=== PATIENT | male | born 1940 | race Caucasian/White ===

== ENCOUNTER → 2018-06-16 08:54 | Outpatient (CLI) | payer OTHER, SELFPAY ==
[2018-06-16 09:58] LABS: Alanine Aminotransferase 18 IU/L (21-72); Albumin 4.3 g/dL (3.5-5.0); Albumin Globulin Ratio 1.3 (1.0-2.8); Alkaline Phosphatase 88 U/L (38-126); Aspartate Aminotransferase 31 IU/L (17-59); BUN Creatinine Ratio 22.7 (6-22); Bilirubin Total 0.7 mg/dL (0.2-1.3); Blood Urea Nitrogen 25 mg/dL (9-20); Calcium 9.4 mg/dL (8.4-10.2); Carbon Dioxide 30 mmol/L (22-32); Chloride 102 mmol/L (98-107); Cholesterol 169 mg/dL (140-199); Estimated Glomerular Filt Rate > 60.0 mL/min (>60); Globulin 3.2 g/dL (1.7-4.1); Glucose 109 mg/dL (80-110); HDL Cholesterol 43 mg/dL (40-60); HEMOLYSIS < 15 (0-50); LDL Cholesterol Calculated 103 mg/dL (<100); Potassium 4.4 mmol/L (3.4-5.1); Sodium 142 mmol/L (137-145); Total Protein 7.5 g/dL (6.3-8.2); Triglycerides 116 mg/dL (35-150)
== END ==
PROVIDERS: Family Provider Student in an Organized Health Care Education/Training Program; PCP Student in an Organized Health Care Education/Training Program; Visit Provider Internal Medicine Cardiovascular Disease
DX: I10 Essential (primary) hypertension (principal)
CPT/HCPCS: 36415; 80053; 80061

== ENCOUNTER → 2018-07-03 09:21 | Outpatient (CLI) | payer OTHER, SELFPAY ==
--- NOTE | 2018-07-03 | DI.ECHO.S_ITS ---
[facility]---------+ [facility] +---------+ : : [address] [place] : : : : [id number] : : : : Phone: [phone]---------+ Echocardiogram Report + + :Name: JOHAN LYMAN Study Date: 07/03/2018 Height: 74 in : :[facility] Weight: 198 lb : : Gender: Male BSA: 2.2 m2 : :: 1940 Age: 78 yrs BP: 130/60 mmHg: :Reason For Study: Mitral Valve- Regurgitation : :Ordering Physician: Narda : :Bereketiwdon Performed By: Camila Sy : + + Interpretation Summary The left ventricle is normal in size. The ejection fraction is estimated to be 55-60%. There has been no significant change since the previous study. The right ventricle is grossly normal size. The right ventricular systolic function is normal. There is moderate mitral regurgitation. Compared to the prior echo study, there has been no change in the severity of mitral regurgitation. There is mild to moderate aortic regurgitation. Compared to the prior echo study, there has been no change in the severity of aortic regurgitation. There is moderate tricuspid regurgitation. Compared to the prior echo exam, there has been an increase in TR severity. The right ventricular systolic pressure is estimated to be at least 40 mmHg based on an estimated right atrial pressure of 3 mm Hg. Compared to the prior echo exam, there has been no change in the severity of pulmonary hypertension. Mild pulmonary artery dilation. The ascending aorta is mildly enlarged. Procedure: A two-dimensional transthoracic echocardiogram with color flow and Doppler was performed. The study quality was technically adequate. Comparison is made with the echocardiogram of 07-20-15. The patient was in atrial fibrillation with heart rates between 59-69 bpm during the exam. Left Ventricle: The left ventricle is normal in size. There is moderate proximal septal thickening noted. There is no echo evidence for significant left ventricular outflow tract obstruction. There is no thrombus. The ejection fraction is estimated to be 55-60%. There has been no significant change since the previous study. There are no focal wall motion abnormalities. Diastolic function could not be accurately assessed due to atrial fibrillation. Right Ventricle: The right ventricle is grossly normal size. The right ventricular systolic function is normal. Atria: The left atrium is severely dilated. The right atrium is mildly dilated. There has been no significant change since the previous study. Doppler evidence suggests a left to right interatrial shunt. Mitral Valve: There is mild mitral annular calcification. There is moderate mitral regurgitation. Compared to the prior echo study, there has been no change in the severity of mitral regurgitation. Aortic Valve: The aortic valve opens well. The aortic valve is trileaflet. There is no aortic valve stenosis. There is mild to moderate aortic regurgitation. Compared to the prior echo study, there has been no change in the severity of aortic regurgitation. Tricuspid Valve: The tricuspid valve is normal. There is moderate tricuspid regurgitation. The right ventricular systolic pressure is estimated to be at least 40 mmHg based on an estimated right atrial pressure of 3 mm Hg. Compared to the prior echo exam, there has been an increase in TR severity. Compared to the prior echo exam, there has been no change in the severity of pulmonary hypertension. Pulmonic Valve: The pulmonic valve is not well seen, but is grossly normal. There is trace pulmonic regurgitation. Great Vessels: The aortic root is normal size. The ascending aorta is mildly enlarged. There has been no significant change since the previous study. Mild pulmonary artery dilation. The IVC is of normal diameter and collapses greater than 50% with a sniff. This suggests a low right atrial pressure of 3 mm Hg. Pericardium/ Pleura There is no pericardial effusion. There is no pleural effusion. MMode/2D Measurements & Calculations LVIDd: 5.0 cm Ao root diam: 3.7 cm LVIDs: 2.8 cm Aortic Jxn: 3.5 cm FS: 43.0 % asc Aorta Diam: 3.7 cm EPSS: 0.00 cm Ao Arch Diam (Prox Trans): 3.0 cm IVSd: 1.5 cm LVPWd: 0.87 cm LV barrera. diameter/BSA (cm/m^2): 2.3 LV sys. diameter/BSA (cm/m^2): 1.3 LA dimension: 6.3 cm RA long axis: 7.2 cm LA A2 area: 52.9 cm2 RA area: 31.5 cm2 LA A4 area: 52.8 cm2 RA vol: 116.8 ml LA length (vol): 8.6 cm RA : 54.0 ml/m2 LA vol: 276.9 ml IVC diam: 2.0 cm LA vol index: 128.0 ml/m2 RVDd major: 5.5 cm RVD1 (basal): 4.2 cm RVD2 (mid): 3.6 cm Doppler Measurements & Calculations Ao V2 max: 98.0 cm/sec AI P1/2t: 820.3 msec Ao V2 mean: 59.4 cm/sec AI dec slope: 144.3 cm/sec2 Ao max P.8 mmHg Ao mean P.7 mmHg Ao V2 VTI: 17.4 cm MV P1/2t: 65.0 msec TR max tamiko: 304.5 cm/sec MR ERO: 0.30 cm2 TR max P.1 mmHg PA V2 max: 50.5 cm/sec PA V2 mean: 32.0 cm/sec PA mean P.49 mmHg PA Accel Time: 0.12 sec MV V2 mean: 51.8 cm/sec MV P1/2t max tamiko: 123.5 cm/sec MV mean P.6 mmHg MVA(P1/2t): 3.4 cm2 MV V2 VTI: 22.4 cm MR flow rate: 149.6 cm3/sec MR PISA radius: 0.78 cm Reading Physician:ANIBAL
== END ==
PROVIDERS: PCP Student in an Organized Health Care Education/Training Program; Visit Provider Internal Medicine Cardiovascular Disease
DX: I08.3 Combined rheumatic disorders of mitral, aortic and tricuspid valves (principal)
CPT/HCPCS: 93306

== ENCOUNTER → 2018-12-09 11:31 | Outpatient (CLI) | payer OTHER, SELFPAY ==
--- NOTE | 2018-12-09 11:33 | DI.US.S_ITS ---
PROCEDURE: US ABDOMEN LIMITED INDICATIONS: LEFT GROIN PAIN TECHNIQUE: Real-time focused scanning was performed of the abdomen, with image documentation. COMPARISON: None. FINDINGS: Reducible, fat and possibly bowel containing left inguinal hernia. IMPRESSION: Left inguinal hernia. Dictated by: Lefty LINDO Interpreted: Talia Lebron MD on 12/09/2018 at 15:44 Approved by: Talia Lebron M.D. on 12/09/2018 at 16:03
== END ==
PROVIDERS: PCP Student in an Organized Health Care Education/Training Program; Visit Provider Nurse Practitioner
DX: K40.90 Unilateral inguinal hernia, without obstruction or gangrene, not specified as recurrent (principal); R10.32 Left lower quadrant pain
CPT/HCPCS: 76705

== ENCOUNTER → 2019-01-12 08:02 | Outpatient (CLI) | payer OTHER, SELFPAY ==
[2019-01-12 08:29] LABS: Hematocrit 45.6 % (41-53); Hemoglobin 15.2 g/dL (13.5-17.5); Mean Corpuscular HGB Conc 33.4 % (30-36); Mean Corpuscular Hemoglobin 31.2 PG (26-34); Mean Corpuscular Volume 93.4 fL (80-100); Platelet Count 217 X10^3/uL (150-400); Red Blood Cell Count 4.89 X10^6/uL (4.5-5.9); Red Cell Distribution Width 13.6 % (11.6-14.8); White Blood Cell Count 7.4 X10^3/uL (4.5-11.0)
[2019-01-12 09:42] LABS: Vitamin D 25 Hydroxy (D3) 58.5 ng/mL (30.0-100.0)
[2019-01-12 10:54] LABS: Creatinine Urine Random 146.5 mg/dL
[2019-01-12 10:57] LABS: Microalbumi Creatinin Ratio Ur 64.1 ug/mg CR (<30); Microalbumin Urine Random 9.4 mg/dL (0-1.6)
== END ==
PROVIDERS: PCP Student in an Organized Health Care Education/Training Program; Visit Provider Nurse Practitioner
DX: E78.00 Pure hypercholesterolemia, unspecified (principal); I10 Essential (primary) hypertension; Z86.39 Personal history of other endocrine, nutritional and metabolic disease
CPT/HCPCS: 36415; 82043; 82306; 82570; 85027

== ENCOUNTER → 2019-02-04 10:03 | Outpatient (CLI) | payer OTHER, SELFPAY | PROVIDERS: PCP Nurse Practitioner; Visit Provider Nurse Practitioner | DX: M81.0 Age-related osteoporosis without current pathological fracture (principal); M85.851 Other specified disorders of bone density and structure, right thigh; E55.9 Vitamin D deficiency, unspecified | CPT/HCPCS: 77080 ==

== ENCOUNTER → 2019-05-20 07:17 | Outpatient (CLI) | payer OTHER, SELFPAY ==
[2019-05-20 07:57] LABS: Hematocrit 43.9 % (41-53); Hemoglobin 14.8 g/dL (13.5-17.5); Mean Corpuscular HGB Conc 33.7 % (30-36); Mean Corpuscular Hemoglobin 31.3 PG (26-34); Mean Corpuscular Volume 92.7 fL (80-100); Platelet Count 214 X10^3/uL (150-400); Red Blood Cell Count 4.73 X10^6/uL (4.5-5.9); Red Cell Distribution Width 13.4 % (11.6-14.8); White Blood Cell Count 6.6 X10^3/uL (4.5-11.0)
[2019-05-20 08:05] LABS: Alanine Aminotransferase 12 IU/L (<50); Albumin 4.5 g/dL (3.5-5.0); Albumin Globulin Ratio 1.6 (1.0-2.8); Alkaline Phosphatase 88 U/L (38-126); Aspartate Aminotransferase 33 IU/L (17-59); BUN Creatinine Ratio 23.6 (6-22); Bilirubin Total 1.1 mg/dL (0.2-1.3); Blood Urea Nitrogen 26 mg/dL (9-20); Calcium 9.3 mg/dL (8.4-10.2); Carbon Dioxide 30 mmol/L (22-32); Chloride 101 mmol/L (98-107); Estimated Glomerular Filt Rate > 60.0 mL/min (>60); Globulin 2.9 g/dL (1.7-4.1); Glucose 110 mg/dL (80-110); HEMOLYSIS < 15 (0-50); Potassium 4.8 mmol/L (3.4-5.1); Sodium 140 mmol/L (137-145); Total Protein 7.4 g/dL (6.3-8.2)
[2019-05-20 08:42] LABS: Neutrophils Absolute Manual 5148 /uL (3000-5900); RBC Morphology Normal Morphology; Total Cells Counted 100
== END ==
PROVIDERS: PCP Nurse Practitioner; Visit Provider Nurse Practitioner
DX: E78.00 Pure hypercholesterolemia, unspecified (principal); I10 Essential (primary) hypertension; I48.20 Chronic atrial fibrillation, unspecified; I73.9 Peripheral vascular disease, unspecified
CPT/HCPCS: 36415; 80053; 84443; 85025

== ENCOUNTER → 2019-08-25 12:12 | Outpatient (CLI) | payer MEDICARE, SELFPAY ==
[2019-08-25 15:04] LABS: Prostate Specific Antigen Scrn 6.39 ng/mL (0.1-4.0)
== END ==
PROVIDERS: PCP Nurse Practitioner; Referring Provider Nurse Practitioner; Visit Provider Nurse Practitioner
DX: Z12.5 Encounter for screening for malignant neoplasm of prostate (principal)
CPT/HCPCS: 36415; G0103

== ENCOUNTER → 2020-01-19 07:48 | Outpatient (CLI) | payer MEDICARE, SELFPAY ==
[2020-01-19 09:00] LABS: Prostate Specific Antigen 6.58 ng/mL (0.10-4.00)
== END ==
PROVIDERS: PCP Nurse Practitioner; Referring Provider Nurse Practitioner; Visit Provider Nurse Practitioner
DX: D48.9 Neoplasm of uncertain behavior, unspecified (principal); N40.1 Benign prostatic hyperplasia with lower urinary tract symptoms; R35.1 Nocturia
CPT/HCPCS: 36415; 84153

== ENCOUNTER → 2020-05-18 08:03 | Outpatient (CLI) | payer MEDICARE, SELFPAY ==
[2020-05-18 09:07] LABS: Alanine Aminotransferase 13 IU/L (<50); Albumin Globulin Ratio 1.3 (1.0-2.8); Alkaline Phosphatase 85 U/L (38-126); Aspartate Aminotransferase 30 IU/L (17-59); BUN Creatinine Ratio 22.6 (6-22); Bilirubin Total 1.1 mg/dL (0.2-1.3); Blood Urea Nitrogen 28 mg/dL (9-20); Calcium 9.1 mg/dL (8.4-10.2); Carbon Dioxide 33 mmol/L (22-32); Chloride 101 mmol/L (98-107); Cholesterol 164 mg/dL (140-199); Estimated Glomerular Filt Rate 56.2 mL/min (>60); Globulin 3.1 g/dL (1.7-4.1); Glucose 109 mg/dL (80-110); HDL Cholesterol 44 mg/dL (40-60); HEMOLYSIS < 15 (0-50); LDL Cholesterol Calculated 102 mg/dL (<100); Potassium 4.4 mmol/L (3.4-5.1); Sodium 138 mmol/L (137-145); Total Protein 7.1 g/dL (6.3-8.2); Triglycerides 92 mg/dL (35-150)
== END ==
PROVIDERS: PCP Nurse Practitioner; Referring Provider Internal Medicine Cardiovascular Disease; Visit Provider Internal Medicine Cardiovascular Disease
DX: I10 Essential (primary) hypertension (principal); I48.20 Chronic atrial fibrillation, unspecified
CPT/HCPCS: 36415; 80053; 80061

== ENCOUNTER → 2020-06-01 14:49 | Outpatient (CLI) | payer MEDICARE, SELFPAY ==
--- NOTE | 2020-06-01 | DI.ECHO.S_ITS ---
[facility]---------+ [facility] +---------+ : : [address] : : : : [id number] : : : : Phone: [phone]---------+ Echocardiogram Report + + :Name: JOHAN LYMAN Study Date: 06/01/2020 Height: 74 in : :[facility] Weight: 191 lb : : Gender: Male BSA: 2.1 m2 : :: 1940 Age: 80 yrs BP: 150/85 mmHg: :Reason For Study: MITRAL INSUFFICIENCY : :Ordering Physician: LEA, : :KAYLAH Performed By: Loev Gtz : :Referring: KAYLAH TATE : + + Interpretation Summary 1) Normal left ventricular size and systolic function (EF 55-60%). 2) The right ventricle is normal in size and function. 3) The left atrium is very severely dilated. 4) There is moderate to severe mitral regurgitation. 5) There is mild to moderate aortic regurgitation. 6) The right ventricular systolic pressure is estimated to be at least 44 mmHg based on an estimated right atrial pressure of 8 mm Hg. 7) Compared to the Echo done 07/03/2018, no significant change when compared visually. Procedure: A two-dimensional transthoracic echocardiogram with color flow and Doppler was performed. The study quality was technically adequate. Comparison is made with the echocardiogram of 07/03/2018. The patient was in atrial fibrillation with heart rates between 52-72 bpm during the exam. Left Ventricle: The left ventricle is normal in size. Proximal septal thickening is noted. Left ventricular wall thickness is mild-moderately increased. The ejection fraction is estimated to be 55-60%. There are no obvious focal wall motion abnormalities noted but poor endocardial definition reduces the sensitivity for the detection of such. Diastolic function could not be accurately assessed due to atrial fibrillation. Right Ventricle: The right ventricle is normal in size and function. Atria: The left atrium is severely dilated. The right atrium is mildly dilated. There is no Doppler evidence for an interatrial shunt. Mitral Valve: There is mild mitral annular calcification. There is moderate to severe mitral regurgitation. Aortic Valve: The aortic valve is trileaflet. The aortic valve opens well. There is no aortic valve stenosis. There is mild to moderate aortic regurgitation. Tricuspid Valve: The tricuspid valve leaflets are thin and pliable. The right ventricular systolic pressure is estimated to be at least 44 mmHg based on an estimated right atrial pressure of 8 mm Hg. There is mild tricuspid regurgitation. Pulmonic Valve: The pulmonic valve is not well visualized. There is mild pulmonic regurgitation. Great Vessels: The aortic root is normal size. The ascending aorta is at the upper limits of normal in size. The IVC is dilated (diameter is greater than 2.1 cm) yet it collapses greater than 50% with a sniff. This suggests a right atrial pressure of 8 mm Hg. Pericardium/ Pleura There is no pericardial effusion. There is no pleural effusion. MMode/2D Measurements & Calculations LVIDd: 4.8 cm LVOT diam: 2.2 cm LVIDs: 3.2 cm Ao root diam: 3.8 cm FS: 34.9 % asc Aorta Diam: 3.9 cm EPSS: 0.54 cm Ao Arch Diam (Prox Trans): 3.1 cm IVSd: 1.4 cm LVPWd: 1.4 cm LV barrera. diameter/BSA (cm/m^2): 2.3 LV sys. diameter/BSA (cm/m^2): 1.5 LA A2 area: 52.3 cm2 RA long axis: 7.9 cm LA A4 area: 41.5 cm2 RA area: 26.5 cm2 LA length (vol): 7.9 cm RA vol: 75.6 ml LA vol: 232.5 ml RA : 35.5 ml/m2 LA vol index: 109.2 ml/m2 IVC diam: 2.3 cm RVD1 (basal): 2.9 cm TAPSE: 1.8 cm Doppler Measurements & Calculations Ao V2 max: 96.5 cm/sec LVOT Max Dmitry: 80.4 cm/sec Ao V2 mean: 68.8 cm/sec LV V1 max P.6 mmHg Ao max P.7 mmHg LV V1 VTI: 19.8 cm Ao mean P.1 mmHg DAMIEN(I,D): 3.8 cm2 Ao V2 VTI: 19.6 cm DAMIEN(V,D): 3.1 cm2 sev ratio: 1.0 DAMIEN indexed to BSA (cm^2/m^2): 1.8 AI P1/2t: 543.0 msec AI dec slope: 227.4 cm/sec2 MV E max dmitry: 106.4 cm/sec TR max dmitry: 285.9 cm/sec MV A max dmitry: 1.2 cm/sec TR max P.6 mmHg MV E/A: 88.3 Med Peak E' Dmitry: 8.0 cm/sec E/E' med: 13.2 Lat Peak E' Dmitry: 17.0 cm/sec E/E' lat: 6.3 E/e' average: 9.7 MV dec time: 0.19 sec MR ERO: 0.42 cm2 MR PISA: 6.9 cm2 SV(LVOT): 74.4 ml MR flow rate: 219.0 cm3/sec MR PISA radius: 1.1 cm Reading Physician:05:57 PM
== END ==
PROVIDERS: PCP Nurse Practitioner; Referring Provider Nurse Practitioner; Visit Provider Internal Medicine Cardiovascular Disease
DX: I34.0 Nonrheumatic mitral (valve) insufficiency (principal)
CPT/HCPCS: 93306

== ENCOUNTER → 2020-09-15 08:51 | Outpatient (CLI) | payer MEDICARE, SELFPAY ==
[2020-09-15] MEDS: COVID-19 VACC #1, MRNA(MOD) 100 MCG/0.5 ML VIAL IM (08:56)
== END ==
PROVIDERS: PCP Nurse Practitioner; Visit Provider Internal Medicine
DX: Z23 Encounter for immunization (principal)
CPT/HCPCS: 0011A; 91301

== ENCOUNTER → 2020-10-13 08:32 | Outpatient (CLI) | payer MEDICARE, SELFPAY ==
[2020-10-13] MEDS: COVID-19 VACC #2, MRNA(MOD) 100 MCG/0.5 ML VIAL IM (08:41)
== END ==
PROVIDERS: PCP Nurse Practitioner; Visit Provider Internal Medicine
DX: Z23 Encounter for immunization (principal)
CPT/HCPCS: 0012A; 91301

== ENCOUNTER → 2021-02-16 11:07 | Outpatient (CLI) | payer MEDICARE, SELFPAY | PROVIDERS: PCP Nurse Practitioner; Referring Provider Nurse Practitioner; Visit Provider Nurse Practitioner | DX: M81.0 Age-related osteoporosis without current pathological fracture (principal); Z79.899 Other long term (current) drug therapy | CPT/HCPCS: 77080 ==

== ENCOUNTER 2021-02-27 12:48 | Emergency (ER) | payer MEDICARE, SELFPAY ==
[2021-02-27] VITALS (7 sets, daily range): BP systolic 116–150; BP diastolic 58–70; PULSE 50–64; RESP 15–21; TEMP 36.8; O2SAT 94–97
--- NOTE | 2021-02-27 13:31 | DI.RAD.S_ITS ---
PROCEDURE: XR CHEST 2V INDICATIONS: shortness of breath TECHNIQUE: 2 views of the chest were acquired. COMPARISON: None. FINDINGS: Surgical changes and devices: None. Lungs and pleura: Lungs are abnormal, with pulmonary hyperexpansion and pulmonary edema.. No pleural effusions or pneumothorax. Mediastinum: Mediastinal contours are normal. Heart size is globally enlarged. Bones and chest wall: No suspicious bony abnormalities. Soft tissues appear unremarkable. IMPRESSION: COPD, cardiomegaly, and what appears to be acute exacerbation of chronic CHF. Dictated by: Willis Severino M.D. on 02/27/2021 at 14:07 Approved by: Willis Severino M.D. on 02/27/2021 at 14:08
[2021-02-27 14:07] LABS: COVID19 -Nasal RAPID Negative (Negative)
--- NOTE | 2021-02-27 14:07 | ED_ITS ---
HPI - General Adult General Chief complaint: Shortness of Breath/Dyspnea Stated complaint: Eval for Congestive Heart Failure Time Seen by Provider: 02/27/21 13:56 Source: patient and family Mode of arrival: Ambulatory History of Present Illness HPI narrative: Patient is a 80-year-old male. Here for evaluation of approximately 1 week of dyspnea on exertion and approximately 24 hours of lower extremity swelling. No chest pain. He does have a history of atrial fibrillation. He is on anticoagulation for this. Has never been diagnosed with heart failure in the past. Not on any diuretics. Contacted his learning specialist for a follow-up I told him to come to the emergency department for evaluation. He is not having any orthopnea. Related Data Home Medications Medication Instructions Recorded Confirmed apixaban 5 mg tablet (Eliquis) 5 mg PO BID #0 05/20/17 02/27/21 cholecalciferol (vitamin D3) 50 2,000 unit PO DAILY 12/03/18 06/06/20 mcg (2,000 unit) chewable tablet multivitamin 1 tab PO QAM 01/08/19 02/27/21 calcium 1,000 mg PO QAM 06/01/19 06/06/20 magnesium 500 mg PO QAM 06/01/19 06/06/20 alphalipolic acid 1 cap PO DAILY 01/25/21 Previous Rx's Medication Instructions Recorded metoprolol tartrate 50 mg tablet 50 mg PO BID #180 tab 04/30/17 alendronate 70 mg tablet See Rx Instructions .ROUTE 06/17/20 .COMPLEX #14 tab omeprazole 20 mg capsule,delayed See Rx Instructions .ROUTE 06/17/20 release .COMPLEX #90 cap alpha lipoic acid 200 mg tablet 200 mg PO DAILY #90 tab 01/12/21 furosemide 20 mg tablet (Lasix) 20 mg PO QAM #30 tab 02/27/21 Allergies Allergy/AdvReac Type Severity Reaction Status Date / Time No Known Drug Allergies Allergy Verified 02/27/21 13:43 Review of Systems Constitutional Constitutional: Denies fever(s) and Denies headache(s) ENT Ears, Nose, Mouth, and Throat: Denies headache(s) Cardiovascular Comments: No chest pain Respiratory Comments: Dyspnea on exertion, no cough Gastrointestinal Gastrointestinal: Denies abdominal pain and Denies nausea Musculoskeletal Comments: Lower extremity swelling Integumentary/Breasts Comments: No cellulitis Neurologic Neurologic: Denies headache(s) Hematologic/Lymphatic On Anticoagulants: Yes Allergic/Immunologic Allergic/Immunologic: Reports system reviewed and no additional complaints, except as documented Patient History Medical History Atrial fibrillation (1998) BPH (benign prostatic hyperplasia) (2012) Chicken pox (1948) Chronic back pain (1969) Hyperlipidemia Hypertension Injury of left thumb (2009) Measles (194) Peripheral neuropathic pain Plantar warts (1969) Pure hypercholesterolemia (05/18/16) Spasm of back muscles (1999) Surgical History (Updated 08/18/20 @ 08:47 by [employer]) Anesthesia History of colonoscopy (2008) History of colonoscopy with polypectomy (10/18/17) History of esophagogastroduodenoscopy (EGD) (10/18/17) History of transesophageal echocardiography (GUILLE) (2000) History of vasectomy (1994) Status post surgical removal of pilonidal cyst (1953) Status post tonsillectomy and adenoidectomy (1946) Family History Father Exposure to asbestos Lung cancer Daughter No problems noted. Son No problems noted. Mother Congestive heart failure Sister Kidney failure Grandfather No problems noted. Grandmother No problems noted. Social History marital status: household members: spouse occupational status: previously employed Smoking Status: Never smoker second hand exposure: No alcohol intake: current (rare/occasional) substance use type: does not use Smoking Status: Never smoker alcohol intake frequency: holidays/special occasions only Substance Use Type: does not use Exam Initial Vital Signs Initial Vital Signs: Vital Signs Temperature 98.3 F 02/27/21 13:30 Pulse Rate 61 02/27/21 13:30 Respiratory Rate 18 02/27/21 13:30 Blood Pressure 141/66 H 02/27/21 13:30 Pulse Oximetry 97 02/27/21 13:30 Const General: cooperative and healthy appearing HENMT Head: normal to inspection and normocephalic Resp Effort & Inspection: normal respiratory effort Auscultation: clear to auscultation bilaterally Cardio Rate: regular rate Rhythm: abnormal rhythm GI Inspection: normal to inspection Palpation: soft Skin General: no rashes or lesions noted Neuro General: patient alert, patient awake, patient oriented x3 and moves all extremities Extrem Other: Bilateral lower extremity swelling Psych Appearance: grossly normal Course Orders Ordered: ED Orders 02/27/21 13:30 COVID19 -Nasal swab/Pre-Proc Stat 02/27/21 13:31 XR chest 2V Stat EKG-12 Lead Stat 02/27/21 14:06 Complete Blood Count AUTO DIFF Stat Comprehensive Metabolic Panel Stat Lactate (Lactic Acid) Stat NT-proBNP (BNP-Adult 18+) Stat Prothrombin Time INR Stat Troponin & CK Cardiac Panel Stat Discontinued Medications Furosemide (Furosemide 100 Mg/10 Ml Vial) 60 mg IV NOW ONE Stop: 02/27/21 14:59 Last Admin: 02/27/21 15:07 Dose: 60 mg Documented by: MARYELLEN Vital Signs Vital signs: Vital Signs - 8 hr 02/27/21 13:30 02/27/21 13:48 02/27/21 14:00 Temperature 98.3 F Pulse Rate 61 56 L 61 Respiratory Rate 18 16 21 Blood Pressure 141/66 H 150/70 H Pulse Oximetry 97 97 97 02/27/21 14:01 02/27/21 14:30 02/27/21 15:00 Temperature Pulse Rate 64 50 L 50 L Respiratory Rate 19 17 15 Blood Pressure 139/68 116/63 Pulse Oximetry 97 94 94 02/27/21 15:02 Temperature Pulse Rate 51 L Respiratory Rate 19 Blood Pressure 125/58 L Pulse Oximetry 94 Medical Decision Making Medical Records Medical records reviewed: Yes I reviewed the patient's medical records. Lab Data Lab results reviewed: Yes I reviewed the patient's lab results. Result diagrams: 02/27/21 14:06 02/27/21 14:06 Labs: Lab Results 02/27/21 02/27/21 02/27/21 Range/Units 13:30 14:06 14:06 WBC 7.4 (4.5-11.0) X10^3/uL RBC 4.57 (4.5-5.9) X10^6/uL Hgb 14.1 (13.5-17.5) g/dL Hct 42.1 (41-53) % MCV 92.2 (80-100) fL MCH 30.9 (26-34) PG MCHC 33.5 (30-36) % RDW 13.9 (11.6-14.8) % Plt Count 240 (150-400) X10^3/uL Neut % (Auto) 74.6 (50-75) % Lymph % (Auto) 9.8 L (25-40) % [place] % (Auto) 12.2 (3-14) % Eos % (Auto) 2.7 (2-4) % Baso % (Auto) 0.7 (0-2) % Neut # (Auto) 5500 (5601-5144) /uL Lymph # (Auto) 700 L (7015-4128) /uL [place] # (Auto) 900 (0-900) /uL Eos # (Auto) 200 (0-450) /uL Baso # (Auto) 100 (0-100) /uL PT 18.7 H (10.1-12.7) SECONDS INR 1.6 H (0.9-1.3) Sodium (137-145) mmol/L Potassium (3.4-5.1) mmol/L Chloride (98-107) mmol/L Carbon Dioxide (22-32) mmol/L BUN (9-20) mg/dL Creatinine (0.66-1.25) mg/dL Estimated GFR (>60) mL/min BUN/Creatinine Ratio (6-22) Glucose (80-110) mg/dL Lactate (0.7-2.1) mmol/L Calcium (8.4-10.2) mg/dL Total Bilirubin (0.2-1.3) mg/dL AST (17-59) IU/L ALT (<50) IU/L Alkaline Phosphatase (38-126) U/L Total Creatine Kinase (55-170) U/L CK-MB (CK-2) CK-MB (CK-2) Rel Index Troponin I (0.01-0.034) ng/mL NT-Pro-B Natriuret Pep (<450) pg/mL Total Protein (6.3-8.2) g/dL Albumin (3.5-5.0) g/dL Globulin (1.7-4.1) g/dL Albumin/Globulin Ratio (1.0-2.8) SARS-CoV-2 (PCR) Negative (Negative) 02/27/21 02/27/21 02/27/21 Range/Units 14:06 14:06 14:06 WBC (4.5-11.0) X10^3/uL RBC (4.5-5.9) X10^6/uL Hgb (13.5-17.5) g/dL Hct (41-53) % MCV (80-100) fL MCH (26-34) PG MCHC (30-36) % RDW (11.6-14.8) % Plt Count (150-400) X10^3/uL Neut % (Auto) (50-75) % Lymph % (Auto) (25-40) % [place] % (Auto) (3-14) % Eos % (Auto) (2-4) % Baso % (Auto) (0-2) % Neut # (Auto) (6604-3686) /uL Lymph # (Auto) (7666-0759) /uL [place] # (Auto) (0-900) /uL Eos # (Auto) (0-450) /uL Baso # (Auto) (0-100) /uL PT (10.1-12.7) SECONDS INR (0.9-1.3) Sodium 134 L (137-145) mmol/L Potassium 4.5 (3.4-5.1) mmol/L Chloride 99 (98-107) mmol/L Carbon Dioxide 27 (22-32) mmol/L BUN 21 H (9-20) mg/dL Creatinine 1.14 (0.66-1.25) mg/dL Estimated GFR > 60.0 (>60) mL/min BUN/Creatinine Ratio 18.4 (6-22) Glucose 101 (80-110) mg/dL Lactate 2.2 H (0.7-2.1) mmol/L Calcium 9.5 (8.4-10.2) mg/dL Total Bilirubin 1.1 (0.2-1.3) mg/dL AST 41 (17-59) IU/L ALT 20 (<50) IU/L Alkaline Phosphatase 97 (38-126) U/L Total Creatine Kinase 88 (55-170) U/L CK-MB (CK-2) TNP CK-MB (CK-2) Rel Index TNP Troponin I 0.012 (0.01-0.034) ng/mL NT-Pro-B Natriuret Pep 1990 H (<450) pg/mL Total Protein 7.4 (6.3-8.2) g/dL Albumin 4.2 (3.5-5.0) g/dL Globulin 3.2 (1.7-4.1) g/dL Albumin/Globulin Ratio 1.3 (1.0-2.8) SARS-CoV-2 (PCR) (Negative) Imaging Data Chest x-ray: Radiologist's Impression: [address] [id number] ReportSigned Patient: Robert Owens FMR#: [id number]: [id number]:[id number]/Sex: 80 / MDate of Service: 02/27/21Loc: EDAccession Number: [id number] Procedure: XR chest 2V Ordering Provider: Jeffry Diaz D.O. PROCEDURE: XR CHEST 2V INDICATIONS: shortness of breath TECHNIQUE: 2 views of the chest were acquired. COMPARISON: None. FINDINGS: Surgical changes and devices: None. Lungs and pleura: Lungs are abnormal, with pulmonary hyperexpansion and pulmonary edema.. No pleural effusions or pneumothorax. Mediastinum: Mediastinal contours are normal. Heart size is globally enlarged. Bones and chest wall: No suspicious bony abnormalities. Soft tissues appear unremarkable. IMPRESSION: COPD, cardiomegaly, and what appears to be acute exacerbation of chronic CHF. Dictated by: Willis Severino M.D. on 02/27/2021 at 14:07 Approved by: Willis Severino M.D. on 02/27/2021 at 14:08 ECG Data Attestation: I personally reviewed and interpreted this ECG as follows: Interpretation: Atrial fibrillation Ventricular rate of 57 Normal axis Normal QRS Normal QTC No ST T wave changes MDM Narrative Medical decision making narrative: Patient does have lower extremity swelling. Has clear lung exam. Not hypoxic. Not tachypneic. Does have chronic atrial fibrillation. I do suspect a component of heart failure given his presentation today however I do not feel that he needs admitted to the hospital for this. Will place him on Lasix. Will have him contact his learning specialist for a follow- up. He was given strict return precautions. He expressed understanding and agreement. Discharge Plan Departure Patient Disposition: Home Clinical Impression: CHF (congestive heart failure), A-fib Instructions: DI for Heart Failure, DI for Atrial Fibrillation Activity Restrictions/Additional Instructions: Continue to take all of your medications as directed and we will add a medicine called furosemide/Lasix. Your next dose will be tomorrow. Also recommend you contact your primary provider and also your learning specialist is you will require a echocardiogram for further evaluation. Return to the emergency department for any new or worsening symptoms Prescriptions: New furosemide [Lasix] 20 mg tablet 20 mg PO QAM Qty: 30 RF: 0 No Action metoprolol tartrate 50 MG tablet 50 mg PO BID Qty: 180 RF: 0 Eliquis 5 MG tablet 5 mg PO BID Qty: 0 RF: 0 alendronate 70 mg tablet See Rx Instructions .ROUTE .COMPLEX Qty: 14 RF: 3 omeprazole 20 mg capsule,delayed release(DR/EC) See Rx Instructions .ROUTE .COMPLEX Qty: 90 RF: 3 alphalipolic acid 1 cap PO DAILY RF: 0 cholecalciferol (vitamin D3) 2,000 unit tablet,chewable 2,000 unit PO DAILY RF: 0 multivitamin tablet 1 tab PO QAM RF: 0 calcium 1,000 mg PO QAM RF: 0 magnesium 500 mg PO QAM RF: 0 alpha lipoic acid 200 mg tablet 200 mg PO DAILY Qty: 90 RF: 3 Referrals: Kathy Chandler ARNP [Primary Care Provider] -
[2021-02-27 14:15] LABS: Add Manual Diff / Slide Review NO; Basophils Absolute Auto 100 /uL (0-100); Basophils Percent Auto 0.7 % (0-2); Eosinophils Absolute Auto 200 /uL (0-450); Eosinophils Percent Auto 2.7 % (2-4); Hematocrit 42.1 % (41-53); Hemoglobin 14.1 g/dL (13.5-17.5); Lymphocytes Absolute Auto 700 /uL (1100-4500); Lymphocytes Percent Auto 9.8 % (25-40); Mean Corpuscular HGB Conc 33.5 % (30-36); Mean Corpuscular Hemoglobin 30.9 PG (26-34); Mean Corpuscular Volume 92.2 fL (80-100); Monocytes Absolute Auto 900 /uL (0-900); Monocytes Percent Auto 12.2 % (3-14); Neutrophils Absolute Auto 5500 /uL (1500-7000); Neutrophils Percent Auto 74.6 % (50-75); Platelet Count 240 X10^3/uL (150-400); Red Blood Cell Count 4.57 X10^6/uL (4.5-5.9); Red Cell Distribution Width 13.9 % (11.6-14.8); White Blood Cell Count 7.4 X10^3/uL (4.5-11.0)
[2021-02-27 14:22] LABS: INR 1.6 (0.9-1.3); Prothrombin Time 18.7 SECONDS (10.1-12.7)
[2021-02-27 14:26] LABS: Creatine Kinase 88 U/L (55-170)
[2021-02-27 14:28] LABS: Alanine Aminotransferase 20 IU/L (<50); Albumin 4.2 g/dL (3.5-5.0); Albumin Globulin Ratio 1.3 (1.0-2.8); Alkaline Phosphatase 97 U/L (38-126); Aspartate Aminotransferase 41 IU/L (17-59); BUN Creatinine Ratio 18.4 (6-22); Bilirubin Total 1.1 mg/dL (0.2-1.3); Blood Urea Nitrogen 21 mg/dL (9-20); Calcium 9.5 mg/dL (8.4-10.2); Carbon Dioxide 27 mmol/L (22-32); Chloride 99 mmol/L (98-107); Estimated Glomerular Filt Rate > 60.0 mL/min (>60); Globulin 3.2 g/dL (1.7-4.1); Glucose 101 mg/dL (80-110); HEMOLYSIS 32 (0-50); Lactate (Lactic Acid) 2.2 mmol/L (0.7-2.1); Potassium 4.5 mmol/L (3.4-5.1); Sodium 134 mmol/L (137-145); Total Protein 7.4 g/dL (6.3-8.2)
[2021-02-27 14:37] LABS: NT-proBNP (BNP-Adult 18+) 1990 pg/mL (<450)
[2021-02-27 14:39] LABS: Troponin I 0.012 ng/mL (0.01-0.034)
[2021-02-27] MEDS: FUROSEMIDE 100 MG/10 ML VIAL 60 MG IV (15:07)
[2021-02-27 16:11] LABS: Reflexed Lactate in 2 Hours Y
== END 2021-02-27 15:20 | disposition home or self-care (01) ==
PROVIDERS: Emergency Provider Emergency Medicine; PCP Nurse Practitioner
DX: I50.9 Heart failure, unspecified (principal); I48.91 Unspecified atrial fibrillation; Z20.822 Contact with and (suspected) exposure to COVID-19
CPT/HCPCS: 36415; 71046; 80053; 82550; 83605; 83880; 84484; 85025; 85610; 87635; 93005; 93010; 96374; 99284; C9803; J1940

== ENCOUNTER → 2021-03-15 08:00 | Outpatient (CLI) | payer MEDICARE, SELFPAY ==
--- NOTE | 2021-03-15 | DI.ECHO.S_ITS ---
[place] [facility]---------+ [facility] +---------+ : : [address] : : : : [id number] : : : : Phone: [phone]+ Echocardiogram Report + + :Name: JOHAN LYMAN Study Date: 03/15/2021 Height: 73 in : :[facility] ReadingLocation: Weight: 188 lb : : Gender: Male BSA: 2.1 m2 : :: 1940 Age: 80 yrs BP: 137/74 mmHg: :Reason For Study: DYSPNEA : :Ordering Physician: : :KAYLAH TATE Performed By: Love Gtz : :Referring: KAYLAH TATE : + + Interpretation Summary The left ventricle is normal in size and wall thickness. The ejection fraction is estimated to be 55-60%. There has been no significant change in LVEF since the previous exam. The right ventricle is normal size. Visually right ventricular systolic function appears normal. There is moderate mitral regurgitation. Previously with moderate to severe MR. There is mild to moderate tricuspid regurgitation. Compared to the prior echo exam, there has been an increase in TR severity. The right ventricular systolic pressure is estimated to be at least 46 mmHg based on an estimated right atrial pressure of 3 mm Hg. Previous PASP 44 mmHg. The ascending aorta is mildly enlarged. 3.8 cm in diameter. Previously 3.9 cm. Procedure: A two-dimensional transthoracic echocardiogram with color flow and Doppler was performed. The study quality was technically adequate. Comparison is made with the echocardiogram of 06/01/2020. The patient was in atrial fibrillation with heart rates between 51-73 bpm during the exam. Left Ventricle: The left ventricle is normal in size and wall thickness. There is no thrombus. The ejection fraction is estimated to be 55-60%. There has been no significant change since the previous exam. There are no focal wall motion abnormalities. Diastolic function could not be accurately assessed due to atrial fibrillation. E/E' med: 15.5. Right Ventricle: The right ventricle is normal size. Visually right ventricular systolic function appears normal. Atria: The left atrium is severely dilated. The left atrium has remained unchanged in size since the prior echo exam. The right atrium is moderately dilated. There is no Doppler evidence for an interatrial shunt. Mitral Valve: There is mild mitral annular calcification. The mitral valve leaflets appear mildly thickened, but open well. The mitral annulus is dilated. There is moderate mitral regurgitation. Aortic Valve: The aortic valve is trileaflet. The aortic valve opens well. There is no aortic valve stenosis. There is mild aortic regurgitation. Compared to the prior echo study, there has been no change in the severity of aortic regurgitation. Tricuspid Valve: The tricuspid valve is normal. There is mild to moderate tricuspid regurgitation. The right ventricular systolic pressure is estimated to be at least 46 mmHg based on an estimated right atrial pressure of 3 mm Hg. Compared to the prior echo exam, there has been an increase in TR severity. Pulmonic Valve: The pulmonic valve leaflets are thin and pliable; valve motion is normal. There is mild to moderate pulmonic regurgitation. Great Vessels: The aortic root is normal size. The ascending aorta is mildly enlarged. There has been no significant change since the previous study. The IVC is of normal diameter and collapses greater than 50% with a sniff. This suggests a low right atrial pressure of 3 mm Hg. Pericardium/ Pleura There is no pericardial effusion. There is no pleural effusion. MMode/2D Measurements & Calculations LVIDd: 5.6 cm LVOT diam: 2.2 cm LVIDs: 3.7 cm Ao root diam: 3.6 cm FS: 34.9 % asc Aorta Diam: 3.8 cm IVSd: 0.86 cm Ao Arch Diam (Prox Trans): 2.8 cm LVPWd: 0.81 cm LV barrera. diameter/BSA (cm/m^2): 2.7 LV sys. diameter/BSA (cm/m^2): 1.7 LA A2 area: 55.6 cm2 RA long axis: 7.7 cm LA A4 area: 45.6 cm2 RA area: 28.3 cm2 LA length (vol): 8.5 cm RA vol: 88.5 ml LA vol: 254.1 ml RA : 42.2 ml/m2 LA vol index: 121.3 ml/m2 IVC diam: 1.9 cm RVD1 (basal): 2.7 cm TAPSE: 1.6 cm Doppler Measurements & Calculations Ao V2 max: 87.6 cm/sec LVOT Max Dmitry: 70.6 cm/sec Ao V2 mean: 60.0 cm/sec LV V1 max P.0 mmHg Ao max P.1 mmHg LV V1 VTI: 16.4 cm Ao mean P.7 mmHg DAMIEN(I,D): 3.8 cm2 Ao V2 VTI: 17.0 cm DAMIEN(V,D): 3.2 cm2 sev ratio: 0.96 DAMIEN indexed to BSA (cm^2/m^2): 1.8 MV E max dmitry: 137.9 cm/sec TR max dmitry: 329.5 cm/sec MV A max dmitry: 1.8 cm/sec TR max P.4 mmHg MV E/A: 76.2 PA V2 max: 80.8 cm/sec Med Peak E' Dmitry: 8.9 cm/sec PA V2 mean: 55.2 cm/sec E/E' med: 15.5 PA mean P.4 mmHg Lat Peak E' Dmitry: 16.9 cm/sec PA pr(Accel): 29.3 mmHg E/E' lat: 8.1 E/e' average: 11.8 MV dec time: 0.18 sec MR ERO: 0.28 cm2 MR PISA: 4.6 cm2 SV(LVOT): 65.1 ml MR flow rate: 145.8 cm3/sec MR PISA radius: 0.86 cm Reading Physician:12:38 PM
== END ==
PROVIDERS: PCP Nurse Practitioner; Referring Provider Internal Medicine Cardiovascular Disease; Visit Provider Internal Medicine Cardiovascular Disease
DX: I08.3 Combined rheumatic disorders of mitral, aortic and tricuspid valves (principal); R06.00 Dyspnea, unspecified; I77.89 Other specified disorders of arteries and arterioles
CPT/HCPCS: 93306

== ENCOUNTER → 2021-03-30 08:01 | Outpatient (CLI) | payer MEDICARE, SELFPAY ==
[2021-03-30 10:18] LABS: BUN Creatinine Ratio 18.6 (6-22); Blood Urea Nitrogen 22 mg/dL (9-20); Calcium 9.5 mg/dL (8.4-10.2); Carbon Dioxide 33 mmol/L (22-32); Chloride 101 mmol/L (98-107); Estimated Glomerular Filt Rate 59.4 mL/min (>60); Glucose 108 mg/dL (80-110); HEMOLYSIS < 15 (0-50); Potassium 4.5 mmol/L (3.4-5.1); Sodium 138 mmol/L (137-145)
== END ==
PROVIDERS: PCP Nurse Practitioner; Referring Provider Internal Medicine Cardiovascular Disease; Visit Provider Internal Medicine Cardiovascular Disease
DX: I34.0 Nonrheumatic mitral (valve) insufficiency (principal)
CPT/HCPCS: 36415; 80048

== ENCOUNTER → 2021-06-02 12:39 | Outpatient (CLI) | payer MEDICARE, SELFPAY ==
[2021-06-02] MEDS: COVID-19 VACC #3, MRNA(MOD) 50 MCG/0.25 ML VIAL IM (12:47)
== END ==
PROVIDERS: PCP Nurse Practitioner; Visit Provider Internal Medicine
DX: Z23 Encounter for immunization (principal)
CPT/HCPCS: 0013A; 91301

== ENCOUNTER → 2021-06-15 08:05 | Outpatient (CLI) | payer MEDICARE, SELFPAY ==
[2021-06-15 10:12] LABS: Blood Urea Nitrogen 29 mg/dL (9-20); Calcium 9.7 mg/dL (8.4-10.2); Carbon Dioxide 31 mmol/L (22-32); Chloride 99 mmol/L (98-107); Estimated Glomerular Filt Rate 55.1 mL/min (>60); Glucose 109 mg/dL (80-110); HEMOLYSIS < 15 (0-50); Potassium 4.9 mmol/L (3.4-5.1); Sodium 137 mmol/L (137-145)
== END ==
PROVIDERS: PCP Nurse Practitioner; Referring Provider Internal Medicine Cardiovascular Disease; Visit Provider Internal Medicine Cardiovascular Disease
DX: I10 Essential (primary) hypertension (principal)
CPT/HCPCS: 36415; 80048

== ENCOUNTER → 2021-07-04 07:34 | Outpatient (CLI) | payer MEDICARE, SELFPAY ==
[2021-07-04 08:49] LABS: Alanine Aminotransferase 12 IU/L (<50); Albumin 4.4 g/dL (3.5-5.0); Albumin Globulin Ratio 1.5 (1.0-2.8); Alkaline Phosphatase 95 U/L (38-126); Aspartate Aminotransferase 32 IU/L (17-59); BUN Creatinine Ratio 24.6 (6-22); Blood Urea Nitrogen 30 mg/dL (9-20); Calcium 9.5 mg/dL (8.4-10.2); Carbon Dioxide 31 mmol/L (22-32); Chloride 102 mmol/L (98-107); Estimated Glomerular Filt Rate 57.2 mL/min (>60); Glucose 120 mg/dL (80-110); HEMOLYSIS < 15 (0-50); Potassium 4.5 mmol/L (3.4-5.1); Sodium 140 mmol/L (137-145); Total Protein 7.4 g/dL (6.3-8.2)
== END ==
PROVIDERS: PCP Nurse Practitioner; Referring Provider Internal Medicine Cardiovascular Disease; Visit Provider Internal Medicine Cardiovascular Disease
DX: I48.20 Chronic atrial fibrillation, unspecified (principal)
CPT/HCPCS: 36415; 80053

== ENCOUNTER → 2021-07-27 09:09 | Outpatient (CLI) | payer MEDICARE, SELFPAY ==
[2021-07-27 11:55] LABS: BUN Creatinine Ratio 24.8 (6-22); Blood Urea Nitrogen 32 mg/dL (9-20); Calcium 9.6 mg/dL (8.4-10.2); Carbon Dioxide 33 mmol/L (22-32); Chloride 100 mmol/L (98-107); Estimated Glomerular Filt Rate 53.6 mL/min (>60); Glucose 127 mg/dL (80-110); HEMOLYSIS < 15 (0-50); Potassium 4.7 mmol/L (3.4-5.1); Sodium 141 mmol/L (137-145)
[2021-07-27 12:02] LABS: NT-proBNP (BNP-Adult 18+) 835 pg/mL (<450)
== END ==
PROVIDERS: PCP Nurse Practitioner; Referring Provider Internal Medicine Cardiovascular Disease; Visit Provider Internal Medicine Cardiovascular Disease
DX: I50.30 Unspecified diastolic (congestive) heart failure (principal)
CPT/HCPCS: 36415; 80048; 83880

== ENCOUNTER 2021-10-16 18:01 | Emergency (ER) | payer MEDICARE, SELFPAY ==
[2021-10-16 18:13] VITALS: BP 135/66; PULSE 63; RESP 18; TEMP 36.6; O2SAT 97; BMI 3749.3
--- NOTE | 2021-10-16 18:20 | DI.RAD.S_ITS ---
PROCEDURE: XR CHEST 1V INDICATIONS: chest pain TECHNIQUE: One view of the chest was acquired. COMPARISON: [facility], CR, XR CHEST 2V, 02/27/2021, 13:46. FINDINGS: Heart size is enlarged. Mild vascular congestion noted. Bibasilar atelectasis and or infiltrate present. Minimal blunting the left costophrenic angle. Right pleural space clear. Osseous structures unremarkable. IMPRESSION: Cardiomegaly mild vascular congestion Bibasilar atelectasis and infiltrate, greater on the left Approved by: Leonard Magallanes M.D. on 10/16/2021 at 18:22
--- NOTE | 2021-10-16 18:46 | DI.CT.S_ITS ---
PROCEDURE: CT HEAD/BRAIN WO CON INDICATIONS: dizziness TECHNIQUE: Noncontrast 4.5 mm thick angled axial sections acquired from the foramen magnum to the vertex, with coronal and sagittal reformats. For radiation dose reduction, the following was used: automated exposure control, adjustment of mA and/or kV according to patient size. COMPARISON: None. FINDINGS: Image quality: Excellent. CSF spaces: Basal cisterns are patent. No extra-axial fluid collections. The ventricles are symmetric in size and shape. Brain: No intracranial bleeds or masses. There is cerebral volume loss for age, with resultant ventricular and sulcal prominence. There are periventricular and deep white matter chronic small vessel ischemic changes. There is intracranial internal carotid artery atherosclerosis. Skull and face: Calvarium and visualized facial bones appear intact, without suspicious lesions. Sinuses: Visualized sinuses and mastoids are clear. IMPRESSION: 1. No acute intracranial abnormalities. Dictated by: David Harmon M.D. on 10/16/2021 at 19:20 Approved by: David Harmon M.D. on 10/16/2021 at 19:21
[2021-10-16 18:48] LABS: Add Manual Diff / Slide Review NO; Basophils Absolute Auto 0 /uL (0-100); Basophils Percent Auto 0.5 % (0-2); Eosinophils Absolute Auto 100 /uL (0-450); Eosinophils Percent Auto 1.9 % (2-4); Hematocrit 43.4 % (41-53); Hemoglobin 14.8 g/dL (13.5-17.5); Lymphocytes Absolute Auto 800 /uL (1100-4500); Lymphocytes Percent Auto 10.7 % (25-40); Mean Corpuscular Hemoglobin 30.9 PG (26-34); Mean Corpuscular Volume 90.7 fL (80-100); Monocytes Absolute Auto 800 /uL (0-900); Monocytes Percent Auto 9.7 % (3-14); Neutrophils Absolute Auto 6000 /uL (1500-7000); Neutrophils Percent Auto 77.2 % (50-75); Platelet Count 212 X10^3/uL (150-400); Red Blood Cell Count 4.78 X10^6/uL (4.5-5.9); Red Cell Distribution Width 14.2 % (11.6-14.8); White Blood Cell Count 7.8 X10^3/uL (4.5-11.0)
[2021-10-16] MEDS: MECLIZINE HCL 12.5 MG TABLET 50 MG PO (18:52)
--- NOTE | 2021-10-16 19:00 | ED.DIZZY ---
HPI - Dizziness General Chief Complaint: Syncope Stated Complaint: SYNCOPE Time Seen by Provider: 10/16/21 18:33 Source: patient and family Mode of arrival: Wheelchair History of Present Illness HPI Narrative: The patient presents with acute onset of dizziness about 530 today at home. He had worked out early without issue. He was sitting on a puzzle when he developed the dizziness. He had no confusion visual changes. He has no speech changes. He has no focal numbness or weakness. His neighbor who is an experienced nurse, saw him and noted him to be ?white as a sheet ?. The digits persist, but not as bad. He is anticoagulated with AFib. He was not having palpitations, chest pain or dyspnea when this occurred. Has no prior history of CVA. Related Data Home Medications Medication Instructions Recorded Confirmed apixaban 5 mg tablet (Eliquis) 5 mg PO BID #0 05/20/17 07/18/21 cholecalciferol (vitamin D3) 50 2,000 unit PO DAILY 12/03/18 07/18/21 mcg (2,000 unit) chewable tablet multivitamin 1 tab PO QAM 01/08/19 07/18/21 calcium 1,000 mg PO QAM 06/01/19 07/18/21 magnesium 500 mg PO QAM 06/01/19 07/18/21 spironolactone 25 mg tablet 12.5 mg PO DAILY tab 07/18/21 07/18/21 Previous Rx's Medication Instructions Recorded metoprolol tartrate 50 mg tablet 50 mg PO BID #180 tab 04/30/17 furosemide 20 mg tablet (Lasix) 20 mg PO QAM #30 tab 02/27/21 omeprazole 20 mg capsule,delayed See Rx Instructions .ROUTE 06/19/21 release .COMPLEX #90 cap alendronate 70 mg tablet See Rx Instructions .ROUTE 06/23/21 .COMPLEX #14 tab meclizine 25 mg tablet 25 mg PO TID PRN #30 tab 10/16/21 Allergies Allergy/AdvReac Type Severity Reaction Status Date / Time No Known Drug Allergies Allergy Verified 10/16/21 18:20 Review of Systems Constitutional Constitutional: Denies body ache(s), Denies chills, Denies fatigue, Denies fever(s), Denies frequent falls, Denies headache(s) and Reports lethargy ENT Ears, Nose, Mouth, and Throat: Reports dizziness, Denies dry mouth, Denies otalgia, Denies facial pain, Denies headache(s), Denies neck pain, Denies sinus pressure and Denies sore throat Cardiovascular Cardiovascular: Denies chest pain, Denies rapid heart rate, Denies pedal edema and Denies dyspnea Respiratory Respiratory: Denies chest congestion, Denies cough and Denies dyspnea Gastrointestinal Gastrointestinal: Denies abdominal pain, Denies constipation, Denies heartburn and Denies vomiting Musculoskeletal Musculoskeletal: Denies back pain and Denies neck pain Integumentary/Breasts Skin/Breast: Denies rash Neurologic Neurologic: Denies confusion, Reports dizziness, Denies frequent falls and Denies headache(s) Psychiatric Psychiatric: Denies confusion Endocrine Endocrine: Denies fatigue Hematologic/Lymphatic On Anticoagulants: Yes Patient History Medical History Atrial fibrillation (1998) BPH (benign prostatic hyperplasia) (2012) Chicken pox (1947) Chronic back pain (1969) Diarrhea (08/23/16) Dyspepsia (06/28/16) Hyperlipidemia Hypertension Injury of left thumb (2009) Measles (1948) Osteoporosis Peripheral neuropathic pain Plantar warts (1969) Pure hypercholesterolemia (05/18/16) Spasm of back muscles (1999) Surgical History Anesthesia History of colonoscopy (2008) History of colonoscopy with polypectomy (10/18/17) History of esophagogastroduodenoscopy (EGD) (10/18/17) History of transesophageal echocardiography (GUILLE) (2000) History of vasectomy (1994) Status post surgical removal of pilonidal cyst (1953) Status post tonsillectomy and adenoidectomy (1946) Family History Father Exposure to asbestos Lung cancer Daughter No problems noted. Son No problems noted. Mother Congestive heart failure Sister Kidney failure Grandfather No problems noted. Grandmother No problems noted. Social History marital status: household members: spouse occupational status: previously employed Smoking Status: Never smoker second hand exposure: No alcohol intake: current (rare/occasional) substance use type: does not use Smoking Status: Never smoker alcohol intake frequency: holidays/special occasions only Substance Use Type: does not use Exam Initial Vital Signs Initial Vital Signs: Vital Signs Temperature 97.9 F 10/16/21 18:13 Pulse Rate 63 10/16/21 18:13 Respiratory Rate 18 10/16/21 18:13 Blood Pressure 135/66 10/16/21 18:13 Pulse Oximetry 97 10/16/21 18:13 Const General: cooperative, comfortable, well developed, well groomed and No acute distress HENMT Head: normal to inspection, normocephalic and atraumatic Ears: TM's normal bilaterally Face and sinus: normal facial exam Mouth: oral mucosae normal Throat: posterior oropharynx normal Eyes General: appearance normal, both eyes and all related structures Conjunctivae: conjunctivae normal Sclera: sclerae normal EOM: nystagmus (Bilateral) Neck Neck: No JVD and other (No bruits) Thyroid: thyroid normal Chest Chest: normal inspection of the chest Resp Auscultation: clear to auscultation bilaterally Cardio Rate: regular rate Rhythm: abnormal rhythm irregularly irregular Heart Sounds: S1 normal GI Inspection: normal to inspection Palpation: soft and No tender Auscultation: normal bowel sounds Back/Spine/Pelvis Back: normal to inspection Skin General: no rashes or lesions noted Neuro General: patient alert, patient awake, patient oriented x3 and no focal motor deficits Cranial Nerves: CN's II-XI intact bilaterally and nystagmus (Bilateral) Cognition: normal cognition Speech: speech normal Extrem General: normal to inspection and full ROM Psych Mental Status: mental status grossly normal Scores NIH Stroke Scale Level of Conciousness: Alert, keenly responsive Ask month/age: Answers both questions correctly. Open/close eyes, close hand: Performs both tasks correctly Best gaze horizontal: Normal Visual zelaya: No visual loss Facial palsy: Normal symetrical movement Left arm drift: No drift for full 10 sec Right arm drift: No drift for full 10 sec Left leg drift: No drift for full 5 sec Right leg drift: No drift for full 5 sec Limb ataxia: Absent Sensory on face/arms/legs: Normal, no sensory loss Best language: No aphasia, normal Dysarthria: Normal Extinction or inattention: No abnormality Total NIH Stroke scale score: 0 Course Course Course Narrative: Cardiac evaluation is benign. NIHSS is 0, he did have nystagmus. Meclizine was given as the workup proceeded. CT of the brain was benign, CTA of head and neck showed no critical lesions. He was working out prior to the event, but thought that he may be dehydrated was entertained. He is advised to follow-up with his PCM to review this event, he should return here if symptoms escalate. Orders Ordered: Discontinued Medications Sodium Chloride (Normal Saline 0.9%) 1,000 mls @ 1,000 mls/hr IV BOLUS PRN PRN Reason: Fluid replacement Last Infusion: 10/16/21 21:43 Dose: 0 mls/hr Documented by: Admin: 10/16/21 19:30 Dose: 1,000 mls/hr Documented by: EVA Meclizine HCl (Meclizine Hcl 12.5 Mg Tablet) 50 mg PO NOW ONE Stop: 10/16/21 18:47 Last Admin: 10/16/21 18:52 Dose: 50 mg Documented by: HARINI Vital Signs Vital signs: Vital Signs - 8 hr 10/16/21 18:13 10/16/21 20:07 10/16/21 20:30 Temperature 97.9 F Pulse Rate 63 61 62 Respiratory Rate 18 18 19 Blood Pressure 135/66 140/65 Pulse Oximetry 97 96 96 MDM - Dizziness Lab Data Result diagrams: 10/16/21 18:40 10/16/21 18:40 Labs: Lab Results 10/16/21 10/16/21 10/16/21 Range/Units 18:40 18:40 18:40 WBC 7.8 (4.5-11.0) X10^3/uL RBC 4.78 (4.5-5.9) X10^6/uL Hgb 14.8 (13.5-17.5) g/dL Hct 43.4 (41-53) % MCV 90.7 (80-100) fL MCH 30.9 (26-34) PG MCHC 34.0 (30-36) % RDW 14.2 (11.6-14.8) % Plt Count 212 (150-400) X10^3/uL Neut % (Auto) 77.2 H (50-75) % Lymph % (Auto) 10.7 L (25-40) % [place] % (Auto) 9.7 (3-14) % Eos % (Auto) 1.9 L (2-4) % Baso % (Auto) 0.5 (0-2) % Neut # (Auto) 6000 (7048-4717) /uL Lymph # (Auto) 800 L (6844-5991) /uL [place] # (Auto) 800 (0-900) /uL Eos # (Auto) 100 (0-450) /uL Baso # (Auto) 0 (0-100) /uL D-Dimer < 200 (<230) ng/mL Sodium 140 (137-145) mmol/L Potassium 4.2 (3.4-5.1) mmol/L Chloride 101 (98-107) mmol/L Carbon Dioxide 28 (22-32) mmol/L BUN 30 H (9-20) mg/dL Creatinine 1.32 H (0.66-1.25) mg/dL Estimated GFR 52.2 L (>60) mL/min BUN/Creatinine Ratio 22.7 H (6-22) Glucose 106 (80-110) mg/dL Calcium 9.3 (8.4-10.2) mg/dL Magnesium 2.1 (1.6-2.3) mg/dL Total Bilirubin 0.8 (0.2-1.3) mg/dL AST 36 (17-59) IU/L ALT 12 (<50) IU/L Alkaline Phosphatase 83 (38-126) U/L Total Creatine Kinase 83 (55-170) U/L CK-MB (CK-2) TNP CK-MB (CK-2) Rel Index TNP Troponin I 0.014 (0.01-0.034) ng/mL Total Protein 8.6 H (6.3-8.2) g/dL Albumin 4.6 (3.5-5.0) g/dL Globulin 4.0 (1.7-4.1) g/dL Albumin/Globulin Ratio 1.2 (1.0-2.8) Lipase 149 (23-300) U/L Urine Dip Bedside Urine Glucose Negative Bedside Urine Bilirubin - Negative Bedside Urine Ketone - Negative Urine Specific [place] 1.015 Bedside Urine Occult Blood - Negative Bedside Urine pH 5.5 Bedside Urine Protein - Negative Bedside Urine Urobilinogen - Negative Bedside Urine Nitrite - Negative Bedside Urine Leukocytes - Negative Esterase Imaging Data Chest x-ray: Radiologist's Impression: Cardiomegaly mild vascular congestion ? Bibasilar atelectasis and infiltrate, greater on the left CT scan - head: Radiologist's Impression: [address] [id number] [address] Scan Report Signed Patient: Robert Owens MR#: [id number] : 1940 Acct:[id number] Age/Sex: 81 / M Date of Service: 10/16/21 Loc: ED Accession Number: [id number] ?? Procedure: CT head/brain wo con Ordering Provider: Franck Hernandez MD PROCEDURE:? CT HEAD/BRAIN WO CON ? INDICATIONS:? dizziness ? TECHNIQUE:? Noncontrast 4.5 mm thick angled axial sections acquired from the foramen magnum to the vertex, with coronal and sagittal reformats.? For radiation dose reduction, the following was used:? automated exposure control, adjustment of mA and/or kV according to patient size.? ? COMPARISON:? None. ? FINDINGS:? Image quality:? Excellent.? ? CSF spaces:? Basal cisterns are patent.? No extra-axial fluid collections.? The ventricles are symmetric in size and shape.? ? Brain:? No intracranial bleeds or masses.? There is cerebral volume loss for age, with resultant ventricular and sulcal prominence.? There are periventricular and deep white matter chronic small vessel ischemic changes.? There is intracranial internal carotid artery atherosclerosis.? ? Skull and face:? Calvarium and visualized facial bones appear intact, without suspicious lesions.? ? Sinuses:? Visualized sinuses and mastoids are clear.? ? IMPRESSION:? ? 1. No acute intracranial abnormalities. ? ? ? Dictated by: David Harmon M.D. on 10/16/2021 at 19:20 ? ? Approved by: David Harmon M.D. on 10/16/2021 at 19:21?? CTA - brain/neck: Radiologist's Impression: 1. No high-grade stenosis or occlusion of the central intracranial arteries. ? 2. No high-grade stenosis or occlusion of the head and neck arteries.? The carotid bulbs appear widely patent. ? 3. Heterogeneous appearance of the thyroid with bilateral indistinct nodules including a partially calcified right nodule.? Further evaluation may be obtained with a thyroid ultrasound if clinically ? Any quantitative measurements of stenosis were performed using NASCET criteria.? ECG Data Attestation: I personally reviewed and interpreted this ECG as follows: (AFib, controlled rate. Motion artifact. No acute ST T wave changes.) Discharge Plan Departure Patient Disposition: Home Clinical Impression: Dizziness Instructions: Vertigo Activity Restrictions/Additional Instructions: Be sure you are drinking plenty of fluids remain well hydrated. Continue your current prescription medications. Meclizine every 6-8 hours as needed for dizziness. Recheck with your doctor in the next 3-4 days, return here if necessary. Prescriptions: New meclizine 25 mg tablet 25 mg PO TID PRN (Reason: dizziness) Qty: 30 0RF No Action metoprolol tartrate 50 MG tablet 50 mg PO BID Qty: 180 0RF Eliquis 5 MG tablet 5 mg PO BID Qty: 0 0RF omeprazole 20 mg capsule,delayed release(DR/EC) See Rx Instructions .ROUTE .COMPLEX Qty: 90 0RF Dose Instruction: Take 1 tablet by mouth daily to protect stomach from acid Rx Instructions: Take 1 tablet by mouth daily to protect stomach from acid alendronate 70 mg tablet See Rx Instructions .ROUTE .COMPLEX Qty: 14 3RF Dose Instruction: Take 1 tablet by mouth once a week on an empty stomach 30 mins prior to breakfast. Rx Instructions: Take 1 tablet by mouth once a week on an empty stomach 30 mins prior to breakfast. cholecalciferol (vitamin D3) 2,000 unit tablet,chewable 2,000 unit PO DAILY 0RF multivitamin tablet 1 tab PO QAM 0RF calcium 1,000 mg PO QAM 0RF magnesium 500 mg PO QAM 0RF spironolactone 25 mg tablet 12.5 mg PO DAILY 0RF furosemide [Lasix] 20 mg tablet 20 mg PO QAM Qty: 30 0RF Referrals: Kathy Chandler ARNP [Primary Care Provider] -
[2021-10-16 19:01] LABS: Alanine Aminotransferase 12 IU/L (<50); Albumin 4.6 g/dL (3.5-5.0); Albumin Globulin Ratio 1.2 (1.0-2.8); Alkaline Phosphatase 83 U/L (38-126); Aspartate Aminotransferase 36 IU/L (17-59); BUN Creatinine Ratio 22.7 (6-22); Bilirubin Total 0.8 mg/dL (0.2-1.3); Blood Urea Nitrogen 30 mg/dL (9-20); Calcium 9.3 mg/dL (8.4-10.2); Carbon Dioxide 28 mmol/L (22-32); Chloride 101 mmol/L (98-107); Creatine Kinase 83 U/L (55-170); Estimated Glomerular Filt Rate 52.2 mL/min (>60); Glucose 106 mg/dL (80-110); HEMOLYSIS 21 (0-50); Lipase 149 U/L (23-300); Magnesium 2.1 mg/dL (1.6-2.3); Potassium 4.2 mmol/L (3.4-5.1); Sodium 140 mmol/L (137-145); Total Protein 8.6 g/dL (6.3-8.2)
[2021-10-16 19:12] LABS: D Dimer < 200 ng/mL (<230); Troponin I 0.014 ng/mL (0.01-0.034)
--- NOTE | 2021-10-16 19:25 | DI.CT.S_ITS ---
PROCEDURE: CT ANGIO HEAD AND NECK INDICATIONS: Acute onset of dizziness TECHNIQUE: After the administration of intravenous contrast, 1 mm thick sections acquired from the aortic arch through the [place] of [place]. Post-contrast 4.5 mm thick sections then re-acquired from the foramen magnum to the vertex. 3-dimensional zjjrtch-mkphlfasz-rmaqusisfx (MIP) and/or volume rendering reformats were acquired of the central intracranial vasculature and neck separately. COMPARISON: [facility], CT, CT HEAD/BRAIN WO CON, 10/16/2021, 18:57. FINDINGS: Image quality: Excellent. BRAIN: CSF spaces: Basal cisterns are patent. No extra-axial fluid collections. There is mild to moderate cerebral volume loss, with resultant ventricular and sulcal prominence. Brain: No intracranial hematoma collections, mass, or mass effect. There are subcortical, periventricular and deep white matter hypodensities consistent with mild chronic small vessel ischemic changes. The luciano-white matter junction appears preserved. No abnormal intracranial enhancement. Skull and face: Calvarium and facial bones appear intact, without suspicious lesions. Orbits appear normal. Sinuses: Sinuses and mastoids are clear. HEAD CT ANGIOGRAPHY: Anterior circulation: Intracranial internal carotid arteries are normal in size and appear patent bilaterally. There is mild atherosclerotic calcification along the cavernous segments of the internal carotid arteries. The paired anterior cerebral arteries appear patent bilaterally. The anterior communicating artery also appears patent. The middle cerebral arteries appear patent bilaterally. No high-grade stenosis, occlusion, or filling defects. No cerebral aneurysms identified. Posterior circulation: Visualized portions of the vertebral arteries demonstrate normal caliber, and join to form a patent basilar artery. The posterior cerebral arteries appears patent bilaterally. There is persistent circulation on the right, with a right posterior cerebral artery supplied by a posterior communicating artery. No high-grade stenosis, occlusion, or filling defects. No cerebral aneurysms identified. NECK CT ANGIOGRAPHY: Carotid system: The great vessels demonstrate a conventional anatomy as they arise from the aortic arch. The origins of the common carotid arteries appear patent. The common carotid arteries demonstrate normal caliber and courses. The bifurcation regions are both widely patent. The internal carotid arteries demonstrate normal calibers and courses. Posterior circulation: The origins of the vertebral arteries both appear patent. The more superior extracranial portions of both vertebral arteries also demonstrate normal courses and calibers. They join to form a patent basilar artery. Soft tissues: Visualized neck soft tissues demonstrate heterogeneous appearance of the thyroid with indistinct nodules bilaterally. These include a partially calcified right thyroid nodule measuring up to 0.6 cm. 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 Bones: No suspicious bony lesions. Visualized cervical spine demonstrates straightening of the cervical lordosis. There is moderate multilevel degenerative disc disease throughout the cervical spine. IMPRESSION: indicated. 1. No high-grade stenosis or occlusion of the central intracranial arteries. 2. No high-grade stenosis or occlusion of the head and neck arteries. The carotid bulbs appear widely patent. 3. Heterogeneous appearance of the thyroid with bilateral indistinct nodules including a partially calcified right nodule. Further evaluation may be obtained with a thyroid ultrasound if clinically Any quantitative measurements of stenosis were performed using NASCET criteria. Dictated by: Mike Moscoso M.D. on 10/16/2021 at 20:29 Approved by: Mike Moscoso M.D. on 10/16/2021 at 20:34
[2021-10-16] MEDS: SODIUM CHLORIDE 0.9% 1,000 ML 1000 ML IV (19:30)
[2021-10-16 20:07] VITALS: PULSE 61; RESP 18; O2SAT 96
[2021-10-16 20:30] VITALS: BP 140/65; PULSE 62; RESP 19; O2SAT 96
[2021-10-16 21:00] VITALS: PULSE 77; RESP 20; O2SAT 91
[2021-10-16 21:30] VITALS: PULSE 63; RESP 19; O2SAT 95
== END 2021-10-16 21:50 | disposition home or self-care (01) ==
PROVIDERS: Emergency Provider Emergency Medicine; PCP Nurse Practitioner; Referring Provider Internal Medicine Cardiovascular Disease
DX: R42 Dizziness and giddiness (principal); Z79.01 Long term (current) use of anticoagulants
CPT/HCPCS: 36415; 70450; 70496; 70498; 71045; 80053; 81003; 82550; 83690; 83735; 84484; 85025; 85379; 93005; 93010; 96360; 96361; 99284; 99285; Q9967

== ENCOUNTER → 2022-04-19 07:45 | Outpatient (CLI) | payer MEDICARE, SELFPAY ==
[2022-04-19 09:48] LABS: BUN Creatinine Ratio 21.8 (6-22); Blood Urea Nitrogen 26 mg/dL (9-20); Calcium 8.9 mg/dL (8.4-10.2); Carbon Dioxide 26 mmol/L (22-32); Chloride 98 mmol/L (98-107); Estimated Glomerular Filt Rate > 60 mL/min (>60); Glucose 177 mg/dL (80-110); HEMOLYSIS < 15 (0-50); Potassium 4.4 mmol/L (3.4-5.1); Sodium 137 mmol/L (137-145)
[2022-04-19 15:48] LABS: Creatinine Urine Random 185.5 mg/dL
[2022-04-19 15:54] LABS: Microalbumi Creatinin Ratio Ur 78.7 ug/mg CR (<30); Microalbumin Urine Random 14.6 mg/dL (0-1.6)
[2022-04-19 16:50] LABS: Hep C Virus Ab w/Reflex Quant NEGATIVE s/c (NEGATIVE)
== END ==
PROVIDERS: PCP Nurse Practitioner; Referring Provider Internal Medicine Cardiovascular Disease; Visit Provider Internal Medicine Cardiovascular Disease
DX: I50.30 Unspecified diastolic (congestive) heart failure (principal); Z11.59 Encounter for screening for other viral diseases; I10 Essential (primary) hypertension
CPT/HCPCS: 36415; 80048; 82043; 82570; 86803

== ENCOUNTER → 2022-09-18 07:20 | Outpatient (CLI) | payer MEDICARE, SELFPAY ==
[2022-09-18 08:28] LABS: BUN Creatinine Ratio 24.3 (6-22); Blood Urea Nitrogen 35 mg/dL (9-20); Calcium 9.4 mg/dL (8.4-10.2); Carbon Dioxide 28 mmol/L (22-32); Chloride 99 mmol/L (98-107); Estimated Glomerular Filt Rate 49 mL/min (>60); Glucose 128 mg/dL (80-110); HEMOLYSIS < 15 (0-50); Potassium 5.3 mmol/L (3.4-5.1); Sodium 136 mmol/L (137-145)
== END ==
PROVIDERS: PCP Nurse Practitioner; Referring Provider Internal Medicine Cardiovascular Disease; Visit Provider Internal Medicine Cardiovascular Disease
DX: I48.20 Chronic atrial fibrillation, unspecified (principal); I50.32 Chronic diastolic (congestive) heart failure
CPT/HCPCS: 36415; 80048

== ENCOUNTER → 2022-10-02 07:19 | Outpatient (CLI) | payer MEDICARE, SELFPAY ==
[2022-10-02 09:10] LABS: BUN Creatinine Ratio 22.8 (6-22); Blood Urea Nitrogen 28 mg/dL (9-20); Calcium 9.1 mg/dL (8.4-10.2); Carbon Dioxide 29 mmol/L (22-32); Chloride 100 mmol/L (98-107); Estimated Glomerular Filt Rate 59 mL/min (>60); Glucose 114 mg/dL (80-110); HEMOLYSIS < 15 (0-50); Potassium 5.1 mmol/L (3.4-5.1); Sodium 139 mmol/L (137-145)
== END ==
PROVIDERS: PCP Nurse Practitioner; Referring Provider Internal Medicine Cardiovascular Disease; Visit Provider Internal Medicine Cardiovascular Disease
DX: I48.20 Chronic atrial fibrillation, unspecified (principal)
CPT/HCPCS: 36415; 80048